=== PATIENT | female | born 1955 | race Caucasian/White ===

== ENCOUNTER 2023-06-18 13:38 | Outpatient (CLI) | payer MEDICARE ==
--- NOTE | 2023-06-18 16:42 | XRAY Report ---
PROCEDURE: Lumbar Spine 4V INDICATIONS: LUMBAR RADICULOPATHY TECHNIQUE: 4 views of the lumbar spine were acquired. COMPARISON: None. FINDINGS: Bones: 5 [id number] vertebrae are present. Levoconvex curvature of the lumbar spine. 5 mm grade 1 retrolisthesis at L2-3. 4 mm grade 1 anterolisthesis at L4-5. No vertebral body compression fractu res. No suspicious bony lesions. Multilevel disc space narrowing and degenerative endplate changes are most notable at the L5-S1 level. There is marked facet hypertrophy throughout the lumbar spine. F lexion and extension views demonstrate mildly reduced range of motion without abnormal subluxation. Soft tissues: Overlying bowel gas pattern is normal. No suspicious soft tissue calcifications. IMPRESSION: 1.Moderate multilevel spondylosis and degenerative spondylolisthesis with prominent facet hypertrophy . 2.Levoconvex curvature of the lumbar spine. 3.Reduced range of motion on flexion and extension views without abnormal subluxations. Reviewed by: Corby Gutierrez MD on 06/18/2023 4:40 PM PST Approved by: Corby Gutierrez MD on 06/18/2023 4:40 PM PST Station ID: [id number]
--- NOTE | 2023-06-18 16:43 | XRAY Report ---
PROCEDURE: Hip w/Pelvis 2-3V RT INDICATIONS: LUMBAR RADICULOPATHY TECHNIQUE: AP pelvis with AP and lateral views of the right hip. COMPARISON: None. FINDINGS: Bones: No acute fractures or dislocations. No suspicious bony lesions. Mild degenerative changes are seen in the hips bilaterally. Degenerative changes also noted in the included lumbar spine. Soft tissues: No suspicious soft tissue calcifications. IMPRESSION: Mild bilateral hip osteoarthrosis. Reviewed by: Corby Gutierrez MD on 06/18/2023 4:41 PM PST Approved by: Corby Gutierrez MD on 06/18/2023 4:41 PM PST Station ID: [id number]
== END 2023-06-18 13:39 | disposition home or self-care (01) ==
LOC: DI.S 13:38
PROVIDERS: ATTEND Specialist
DX: M16.0 Bilateral primary osteoarthritis of hip (principal); M47.26 Other spondylosis with radiculopathy, lumbar region; M43.16 Spondylolisthesis, lumbar region

== ENCOUNTER 2023-11-22 13:40 | Emergency (ER) | payer MEDICARE ==
--- NOTE | 2023-11-22 13:53 | ED Physician Documentation ---
PD HPI Fall - Stated complaint Stated Complaint: GLF - History obtained from History obtained from: Patient - History of Present Illness Mechanism of injury: Slipped Fall distance: Standing position Timing - onset: How many hours ago, How many days ago Injury(ies) location: Back PD PAST MEDICAL HISTORY - Present Medications Home Medications: Ambulatory Orders Medication Instructions Recorded Confirmed HYDROcod/ACETAM 5/325 [Roscoe 5/325] 1 ea PO Q6H PRN #14 tablet 11/22/23 Ondansetron Odt [Zofran] 4 mg TL Q6H PRN #10 tablet 11/22/23 - Allergies Allergies/Adverse Reactions: Allergies Allergy/AdvReac Type Severity Reaction Status Date / Time No Known Drug Allergies Allergy Verified 11/22/23 13:54 PD ED PE NORMAL - Vitals Vital signs reviewed: Yes - General General: Alert and oriented X 3, Well developed/nourished - HEENT HEENT: Other (tender in right occiput area with focal swelling c/w hematoma,contusion. ) - Neck Neck: Supple, no meningeal sign, No bony TTP - Cardiac Cardiac: RRR, No murmur - Respiratory Respiratory: Clear bilaterally Results - Vitals Vitals: Vital Signs - 24 hr 11/22/23 11/22/23 13:49 15:59 Temperature 36.3 C L 36.5 C Heart Rate 81 80 Respiratory 20 16 Rate Blood Pressure 142/82 H 138/80 H O2 Saturation 98 100 Oxygen O2 Source Room air - Rads (name of study) head CT Relevant Findings:: Prelim report reviewed (No ), Critical result (calp hermatoma noted external. ), EMP independent interpretation of test PD Medical Decision Making - ED course Complexity details: reviewed results (no ICH nor fx on head CT.), re-evaluated patient (improved symptoms with hydrocodone, naproxenl and Zofran. Head CT is okay. Having concussive SAM and some nausea, trounle von enttratinh. Mild concussive. ), considered differential (The patient was playing pickle ball 3 days ago and accidentally tripped while backpedaling for the ball. She hit the back of her head firmly and was on the ground for a minute or so but did not have loss of consciousness. Some headache at the time which was only mild after few hours. ), d/w patient ED course: She struck her head without any real concussive symptoms at the time. No loss of consciousness, vomiting, visual changes. She was slightly dazed for a minute or so. Helped up. Has had some headache since that time which has increased the last 24 hours. She has now had 3 days of headache with some nausea at times and feeling a bit off balance. Concern for intracranial injury is not improving. Given the duration of symptoms along with her age, even though she is not on blood thinners, I would still feel it appropriate to get a CT scan given the severity of her headache. CT scan was done and did not show any intracranial process. She had been given p.o. medicines here with improvement in her headache. We did discuss postconcussive headache and symptoms that they can persist for several days to even several weeks sometimes. She should see how she does over the next several days to week with fairly regular anti-inflammatories and adding Tylenol and pain medicine if needed. Departure - Departure Disposition: 01 Home, Self Care Clinical Impression: Fall, accidental, Scalp contusion, Post-concussion headache Condition: Stable Record reviewed to determine appropriate education?: Yes Instructions: ED Concussion Prescriptions: HYDROcod/ACETAM 5/325 [[place]coe 5/325] 1 ea PO Q6H PRN #14 tablet PRN Reason: Pain Ondansetron Odt [Zofran] 4 mg TL Q6H PRN #10 tablet PRN Reason: Nausea / Vomiting Comments: Your head CT shows the hematoma on the scalp which was easily palpable anyway. The walker part is there is no signs of skull fracture nor focal swelling or bleeding within the brain compartment. This is different from whether you have injury. The CT only tells us that there is no fractures or bleeding or localized swelling or tumors. You can still have the concussive symptoms and that the vast majority of the time with injuries like this, is to have some headaches, slightly off balance, and nausea etc. for commonly only a couple of days but at times can be 2 or 3 weeks. Rarely would it be longer. I would suggest some regular anti-inflammatory such as ibuprofen or naproxen 2 to 3 tablets 3 times daily 2 times daily for the next several days to week. Add Tylenol 500 to 650 mg 4 times daily regularly for the next several days. Add hydrocodone every 6 hours if needed for worse headache. I wrote a limited prescription for you. Also ondansetron if needed for nausea. I sent new prescriptions to the [facility] in [place]. Follow-up with your primary care or walk-in etc. if not improved well over the next few days and resolved over the next week or 2. I am prescribing a short course of narcotic pain medication for you. These are potentially dangerous and addictive medications that should be used carefully. These medications may constipate you. Take an xeko-kjz-oggrjht stool softener such as docusate twice daily with plenty of water while taking these medications. If you go 24 hours without a bowel movement, take jeib-cmk-fompord MiraLAX, per package instructions. Do not drink or drive while taking these medications. If you received narcotic or sedating medications while in the emergency department do not drive for 24 hours. Store this medication in a safe, secure place and out of reach of children. It is a violation of federal law to give or sell this medication to another person or to use in a manner other than prescribed. The ED will not refill narcotic prescriptions, including prescriptions lost or stolen. You can dispose of unwanted medications at the [facility]'s office or at several pharmacies such as [facility]. Forms: PCP List Discharge Date/Time: 11/22/23 15:59
[2023-11-22] MEDS: ONDANSETRON ODT 4 MG TABLET TL STA (14:45)
[2023-11-22] MEDS: NAPROXEN 250 MG TABLET PO STA (14:45)
--- NOTE | 2023-11-22 14:45 | CT Report ---
PROCEDURE: Head WO INDICATIONS: fall, struck head 3 d ago; persistent symptoms TECHNIQUE: Helical axial CT of the brain was obtained without contrast and reformatted in multiple p lanes. Radiation dose reduction was achieved using automated exposure control or adjustment of mA and /or kV according to patient size. COMPARISON: None FINDINGS: CSF spaces: Ventricles are appropriate in size and position. No hydrocephalus. Basal cisterns unre markable. Brain: No midline shift. No intracranial masses or hemorrhage. Johnson-white matter interface is norm al. Skull and face: Calvarium and skull base are unremarkable without suspicious lesion. High parietal lobe and right paracentral scalp hematoma Sinuses: Visualized sinuses and mastoids are clear. IMPRESSION: Right parietal scalp hematoma without underlying skull fracture or intracranial hemorrhage Reviewed by: Clayton Harrell MD on 11/22/2023 1:43 PM AKDT Approved by: Clayton Harrell MD on 11/22/2023 1:43 PM AKDT Station ID: [id number]
[2023-11-22] MEDS: HYDROcod/ACETAM 5/325 MG TABLET PO STA (14:46)
[2023-11-22 16:04] VITALS: BP 138/80; O2SAT 100
== END 2023-11-22 15:59 | disposition home or self-care (01) ==
LOC: ED 13:40
DX: S00.03XA Contusion of scalp, initial encounter (principal); G44.309 Post-traumatic headache, unspecified, not intractable; W01.0XXA Fall on same level from slipping, tripping and stumbling without subsequent striking against object, initial encounter
CPT/HCPCS: 70450; 99284; A9270; Q0162